=== PATIENT | female | born 1950 | race Caucasian/White ===

== ENCOUNTER 2020-07-20 12:43 | Day surgery (SDC) | payer MEDICARE ==
[~2020-07-20] VITALS: Ht 167.6 cm; Wt 61.6 kg
[~2020-07-20 12:43] MED LIST: ROCURONIUM 10MG/ML,5ML ONE
[2020-07-20] MEDS ORDERED: LACTATED RINGERS 1,000 ML IV ONE (13:09)
[2020-07-20] MEDS ORDERED: CHLORHEXIDINE 15 ML UDC MM ONE (13:09)
[2020-07-20 13:26] VITALS: BP 133/83
[2020-07-20] MEDS ORDERED: PLEASE ENTER ALLERGIES MC SCH (13:30)
[2020-07-20] MEDS ORDERED: OXYC5CAP2 PO (13:34)
[2020-07-20] MEDS ORDERED: HYDR-3240 PO (13:34)
[2020-07-20] MEDS ORDERED: PROMETHAZINE 25 MG/ML, 1ML IVPush PRN (14:30)
[2020-07-20] MEDS ORDERED: MEPERIDINE/PF 25MG/0.5ML IVPush PRN (14:30)
[2020-07-20] MEDS ORDERED: ACETAMINOPHEN 325 MG TABLET PO PRN (14:30)
[2020-07-20] MEDS ORDERED: HALOPERIDOL 5 MG/ML IV PRN (14:30)
[2020-07-20] MEDS ORDERED: OXYcodone 5 MG/5 ML ORAL.SOL UDC PO PRN (14:30)
[2020-07-20] MEDS ORDERED: morphine SULFATE 10 MG/ML, 1ML IVPush PRN (14:30)
[2020-07-20] MEDS ORDERED: LABETALOL 5MG/ML, 20ML IV PRN (14:30)
[2020-07-20] MEDS ORDERED: HYDROmorphone 1 MG/ML, 1ML INJ IVPush PRN (14:30)
[2020-07-20] MEDS ORDERED: hydrALAzine 20 MG/ML, 1ML IV PRN (14:30)
[2020-07-20] MEDS ORDERED: FENTANYL PF 250 MCG/5ML ONE (14:40)
[2020-07-20] MEDS ORDERED: MIDAZOLAM 1 MG/ML, 2ML ONE (14:40)
[2020-07-20] MEDS ORDERED: NEOSTIGMINE 1 MG/ML, 10ML ONE (15:58)
[2020-07-20] MEDS ORDERED: PROPOFOL 10 MG/ML, 20ML ONE (15:58)
[2020-07-20] MEDS ORDERED: ONDANSETRON 2MG/ML, 2ML ONE (15:58)
[2020-07-20] MEDS ORDERED: CEFAZOLIN 1,000 MG ONE (15:58)
[2020-07-20] MEDS ORDERED: DEXAMETHASONE 4 MG/ML, 1ML ONE (15:58)
[2020-07-20] MEDS ORDERED: GLYCOPYRROLATE 0.2MG/1ML, 5ML ONE (15:58)
[2020-07-20] MEDS ORDERED: FENTANYL PF 100 MCG/2ML ONE ×2 (16:48→17:23)
[2020-07-20] MEDS ORDERED: PROMETHAZINE 25 MG/ML, 1ML ONE (17:23)
[2020-07-20] MEDS ORDERED: OXYcodone 5 MG/5 ML ORAL.SOL UDC ONE (17:23)
[2020-07-20] MEDS: FENTANYL PF 100 MCG/2ML IV PRN ×3 (17:34→17:42)
[2020-07-20] MEDS ORDERED: HYDROmorphone 1 MG/ML, 1ML INJ ONE (18:02)
[2020-07-20] MEDS ORDERED: ROPIvacaine/PF 0.2%, 20 ML ONE (18:26)
[2020-07-20] MEDS ORDERED: OXYcodone/APAP 5/325MG TABLET PO PRN (21:00)
[2020-07-20] MEDS ORDERED: HYDROmorphone 1 MG/ML, 1ML INJ IM PRN (21:00)
[2020-07-20] MEDS ORDERED: ONDANSETRON 2MG/ML, 2ML IV PRN (21:00)
== END 2020-07-20 22:00 | disposition home or self-care (01) ==
LOC: OUT 12:43 → 4NE 19:57 → OUT 22:00
PROVIDERS: ATTEND Orthopaedic Surgery
DX: S42.292A Other displaced fracture of upper end of left humerus, initial encounter for closed fracture (principal); Z20.828 Contact with and (suspected) exposure to other viral communicable diseases; S46.122A Laceration of muscle, fascia and tendon of long head of biceps, left arm, initial encounter; G89.18 Other acute postprocedural pain; Z79.891 Long term (current) use of opiate analgesic; Z79.899 Other long term (current) drug therapy; Z87.891 Personal history of nicotine dependence; Z88.0 Allergy status to penicillin; Z82.49 Family history of ischemic heart disease and other diseases of the circulatory system; W01.0XXA Fall on same level from slipping, tripping and stumbling without subsequent striking against object, initial encounter; Y93.89 Activity, other specified; Y92.89 Other specified places as the place of occurrence of the external cause; Y99.8 Other external cause status
CPT/HCPCS: 23615; 64415; 73030; 87635; 93005; C1713; C1762; J0690; J1100; J1170; J2250; J2405; J2550; J2704; J2710; J2795; J3010; J7120; 76000; G0378